=== PATIENT | female | born 1970 | race Caucasian/White ===

== ENCOUNTER 2018-02-16 11:21 | Emergency (ER) | payer BC, MEDICARE ==
[~2018-02-16] VITALS: Ht 160 cm; Wt 77.3 kg
[2018-02-16] MEDS ORDERED: PANTOPRAZOLE SO40 MG PO (11:37)
[2018-02-16] MEDS ORDERED: HYDROXYZ HCL25 MG PO (11:39)
[2018-02-16] MEDS ORDERED: RISPERIDONE2 MG PO (11:40)
[2018-02-16] MEDS ORDERED: TRAZODONE50 MG PO (11:41)
[2018-02-16] MEDS ORDERED: SERTRALINE HCL50 MG PO (11:42)
[2018-02-16] MEDS ORDERED: VOLTAREN1%GEL TOP (11:43)
[2018-02-16] MEDS ORDERED: XTAMPZA ER27 MG PO (11:43)
[2018-02-16] MEDS ORDERED: HYDROMORPHON4 MG PO (11:44)
[2018-02-16] MEDS ORDERED: CLEARLAX PO (11:45)
[2018-02-16] MEDS ORDERED: PHENERGAN25 MG/TAB PO (12:02)
[2018-02-16] MEDS ORDERED: PENICILLN VK500 MG PO (12:02)
[2018-02-16 12:15] VITALS: BP 156/89
== END 2018-02-16 12:15 | disposition home or self-care (01) | DRG 159 ==
LOC: ED 11:21
DX: K02.9 Dental caries, unspecified (principal); K04.7 Periapical abscess without sinus; K08.89 Other specified disorders of teeth and supporting structures; R50.9 Fever, unspecified; F17.210 Nicotine dependence, cigarettes, uncomplicated

== ENCOUNTER 2018-03-01 13:16 | Emergency (ER) | payer BC, MEDICARE ==
[~2018-03-01] VITALS: Ht 160 cm; Wt 75.0 kg
[~2018-03-01 13:16] MED LIST: CLEARLAX PO; HYDROMORPHON4 MG PO; HYDROXYZ HCL25 MG PO; PANTOPRAZOLE SO40 MG PO; PENICILLN VK500 MG PO; PHENERGAN25 MG/TAB PO; RISPERIDONE2 MG PO; SERTRALINE HCL50 MG PO; TRAZODONE50 MG PO; VOLTAREN1%GEL TOP; XTAMPZA ER27 MG PO
[2018-03-01] MEDS ORDERED: CLINDAMYCIN300 M1 PO (14:25)
[2018-03-01 14:42] VITALS: BP 111/69
== END 2018-03-01 14:42 | disposition home or self-care (01) | DRG 159 ==
LOC: ED 13:16
PROC: 0C960ZZ Drainage of Lower Gingiva, Open Approach (ICD-10-PCS; principal; 2018-03-01)
DX: K08.89 Other specified disorders of teeth and supporting structures (principal); I10 Essential (primary) hypertension; F17.200 Nicotine dependence, unspecified, uncomplicated

== ENCOUNTER 2018-04-25 11:35 | Emergency (ER) | payer BC, MEDICARE, MEDICAID ==
[~2018-04-25] VITALS: Ht 160 cm; Wt 80.0 kg
[2018-04-25 12:47] LABS: HEMOGLOBIN 12.3 g/dl (12.0-16.0); IMMATURE GRANULOCYTES 0.1 % (0.0-5.0); MEAN CELL VOLUME 91.4 fL CALC (80.0-100.0); MEAN CORPUSCULAR HGB 30.4 pG CALC (26.0-32.0); MEAN CORPUSCULAR HGB CONC 33.2 g/L CALC (32.0-36.0); NEUT# 4.36 thou/uL (2.00-7.15); RED BLOOD COUNT 4.05 mill/uL (4.20-5.60); RED CELL DISTRI WIDTH 13.4 % (11.5-15.5)
[2018-04-25 13:03] LABS: ANION GAP 13 (6-22 (CALC)); BUN 10 mg/dL (7-17); BUN/CREATININE RATIO 17 (12-20 (CALC)); CARBON DIOXIDE 29 mmol/l (22-30); CHLORIDE 99 mmol/l (95-108); CREATININE 0.6 mg/dL (0.5-1.0); GFR > 60 ML/MIN (>=60 (CALC)); GFR FOR AFR.AMER. > 60 ML/MIN (>=60 (CALC)); POTASSIUM 3.4 mmol/l (3.5-5.1); SODIUM 138 mmol/l (137-146)
[2018-04-25 16:03] VITALS: BP 138/76
== END 2018-04-25 16:34 | disposition home or self-care (01) | DRG 313 ==
LOC: ED 11:35
PROVIDERS: Family Medicine
DX: R07.9 Chest pain, unspecified (principal); R00.2 Palpitations; R94.31 Abnormal electrocardiogram [ECG] [EKG]; R22.41 Localized swelling, mass and lump, right lower limb; F17.200 Nicotine dependence, unspecified, uncomplicated; M25.551 Pain in right hip

== ENCOUNTER → 2018-04-25 | Outpatient (REF) | payer BC, MEDICARE, MEDICAID ==
[~2018-04-25] MED LIST changes: +CLINDAMYCIN300 M1 PO
== END | disposition home or self-care (01) | DRG 556 ==
LOC: MRI 04-22 14:00
DX: M25.551 Pain in right hip (principal)

== ENCOUNTER 2018-09-29 12:07 | Emergency (ER) | payer BC, MEDICARE, MEDICAID ==
[~2018-09-29] VITALS: Ht 160 cm; Wt 77.3 kg
[2018-09-29 12:30] VITALS: BP 144/88
== END 2018-09-29 13:01 | disposition left against medical advice (07) | DRG 951 ==
LOC: ED 12:07 → LWOBS 13:01
DX: Z91.19 Patient's noncompliance with other medical treatment and regimen (principal)

== ENCOUNTER 2018-12-03 12:03 | Emergency (ER) | payer MEDICARE, MEDICAID ==
[~2018-12-03] VITALS: Ht 160 cm; Wt 85.0 kg
[~2018-12-03 12:03] MED LIST changes: +PANTOPRAZOLE SO40 M1 PO; -PANTOPRAZOLE SO40 MG PO
[2018-12-03] MEDS ORDERED: TRAZODONE300 MG PO (13:15)
[2018-12-03] MEDS ORDERED: RISPERDAL1 MG PO (13:16)
[2018-12-03] MEDS ORDERED: SERTRALINE HCL100 MG PO (13:16)
[2018-12-03] MEDS ORDERED: HYDROXYZ HCL10 MG PO (13:17)
[2018-12-03] MEDS ORDERED: OXYCODONE30 MG PO (13:18)
[2018-12-03] MEDS ORDERED: DUEXIS1 TAB PO (13:18)
[2018-12-03] MEDS ORDERED: MORPHINE SUL30 M3 PO (13:19)
[2018-12-03] MEDS ORDERED: MELOXICAM15 MG PO (13:21)
[2018-12-03 13:25] VITALS: BP 149/79
== END 2018-12-03 13:25 | disposition home or self-care (01) ==
LOC: ED 12:03
DX: M79.602 Pain in left arm (principal); F17.200 Nicotine dependence, unspecified, uncomplicated

== ENCOUNTER 2019-02-01 21:07 | Emergency (ER) | payer MEDICARE, MEDICAID ==
[~2019-02-01] VITALS: Ht 160 cm; Wt 80.0 kg
[~2019-02-01 21:07] MED LIST changes: +DUEXIS1 TAB PO; +HYDROXYZ HCL10 MG PO; +MELOXICAM15 MG PO; +MORPHINE SUL30 M3 PO; +OXYCODONE30 MG PO; +RISPERDAL1 MG PO; +SERTRALINE HCL100 MG PO; +TRAZODONE300 MG PO
[2019-02-01 21:13] VITALS: BP 142/97
[2019-02-01] MEDS ORDERED: VOLTAREN - GENE75 MG PO (21:32)
== END 2019-02-01 21:50 | disposition home or self-care (01) ==
LOC: ED 21:07
DX: N64.4 Mastodynia (principal); F17.200 Nicotine dependence, unspecified, uncomplicated

== ENCOUNTER 2019-03-04 | Observation (INO) | payer MEDICARE, MEDICAID ==
[2019-03-04] VITALS (8 sets, daily range): BP systolic 101–166; BP diastolic 67–90
[~2019-03-04] MED LIST changes: +VOLTAREN - GENE75 MG PO
[2019-03-04] MEDS ORDERED: ZOLOFT50 MG PO (01:52)
[2019-03-04 02:05] LABS: HEMATOCRIT 39.8 % (37.0-47.0); HEMOGLOBIN 13.7 g/dl (12.0-16.0); IMMATURE GRANULOCYTES 0.2 % (0.0-5.0); MEAN CELL VOLUME 88.4 fL CALC (80.0-100.0); MEAN CORPUSCULAR HGB 30.4 pG CALC (26.0-32.0); MEAN CORPUSCULAR HGB CONC 34.4 g/L CALC (32.0-36.0); NEUT# 8.65 thou/uL (2.00-7.15); RED BLOOD COUNT 4.5 mill/uL (4.20-5.60); RED CELL DISTRI WIDTH 12.8 % (11.5-15.5)
[2019-03-04 02:06] LABS: URINE BILIRUBIN - DIPSTICK NEGATIVE (NEGATIVE); URINE BLOOD DIPSTICK NEGATIVE (NEGATIVE); URINE COLOR YELLOW; URINE GLUCOSE - DIPSTICK NEGATIVE (NEGATIVE); URINE KETONE NEGATIVE (NEGATIVE); URINE LEUK ESTERASE NEGATIVE (NEGATIVE); URINE NITRITE - DIPSTICK NEGATIVE (Negative); URINE PH 6.5 (4.5-8.0); URINE PROTEIN - DIPSTICK NEGATIVE (NEG-TRACE); URINE SPECIFIC GRAVITY <=1.005; URINE UROBILINOGEN - DIPSTICK 0.2 E.U./dL (0.2)
[2019-03-04 02:22] LABS: ALBUMIN 4.4 g/dL (3.2-5.0); ALKALINE PHOSPHATASE 81 u/l (38-126); BILIRUBIN, TOTAL 0.5 mg/dL (0.0-1.4); BUN 10 mg/dL (7-17); BUN/CREATININE RATIO 14 (12-20 (CALC)); CARBON DIOXIDE 30 mmol/l (22-30); CHLORIDE 99 mmol/l (95-108); CREATININE 0.7 mg/dL (0.5-1.0); GFR > 60 ML/MIN (>=60 (CALC)); GFR FOR AFR.AMER. > 60 ML/MIN (>=60 (CALC)); SGOT/AST 18 u/l (14-36); SODIUM 138 mmol/l (137-146); TOTAL PROTEIN 7.6 g/dL (6.3-8.2)
[2019-03-04 02:33] LABS: MYOGLOBIN 45 ng/mL (0 - 62)
[2019-03-04 02:37] LABS: ANION GAP 12 (6-22 (CALC)); POTASSIUM 2.6 mmol/l (3.5-5.1)
[2019-03-04 02:43] LABS: BARBITURATES NEGATIVE (NEGATIVE); COCAINE NEGATIVE (NEGATIVE); METHADONE NEGATIVE (NEGATIVE); OXCYCODONE POSITIVE (NEGATIVE); TETRAHYDROCANNABIONOL NEGATIVE (NEGATIVE); TRICYLIC ANTIDEPRESSANTS NEGATIVE (NEGATIVE)
== END 2019-03-04 21:06 ==
PROVIDERS: Emergency Medicine; ADMIT Internal Medicine
DX: G93.40 Encephalopathy, unspecified (principal); F99 Mental disorder, not otherwise specified; R44.0 Auditory hallucinations; E87.6 Hypokalemia; R00.2 Palpitations; G89.4 Chronic pain syndrome; F17.200 Nicotine dependence, unspecified, uncomplicated

== ENCOUNTER 2019-12-08 20:46 | Emergency (ER) | payer MEDICARE, MEDICAID ==
[~2019-12-08] VITALS: Ht 160 cm; Wt 100.0 kg
[~2019-12-08 20:46] MED LIST changes: +ZOLOFT50 MG PO
[2019-12-08 21:13] LABS: HEMATOCRIT 38.9 % (37.0-47.0); HEMOGLOBIN 12.5 g/dl (12.0-16.0); IMMATURE GRANULOCYTES 0.4 % (0.0-5.0); MEAN CELL VOLUME 92.4 fL CALC (80.0-100.0); MEAN CORPUSCULAR HGB 29.7 pG CALC (26.0-32.0); MEAN CORPUSCULAR HGB CONC 32.1 g/dL CAL (32.0-36.0); RED BLOOD COUNT 4.21 mill/uL (4.20-5.60); RED CELL DISTRI WIDTH 13.4 % (11.5-15.5)
[2019-12-08 21:34] LABS: ALKALINE PHOSPHATASE 76 u/l (38-126); ANION GAP 12 (6-22 (CALC)); BILIRUBIN, TOTAL 0.3 mg/dL (0.0-1.4); BUN 11 mg/dL (7-17); BUN/CREATININE RATIO 15 (12-20 (CALC)); CARBON DIOXIDE 25 mmol/l (22-30); CHLORIDE 108 mmol/l (95-108); CREATININE 0.7 mg/dL (0.5-1.0); GFR > 60 ML/MIN (>=60 (CALC)); GFR FOR AFR.AMER. > 60 ML/MIN (>=60 (CALC)); POTASSIUM 3.3 mmol/l (3.5-5.1); SGOT/AST 31 u/l (14-36); SODIUM 142 mmol/l (137-146); TOTAL PROTEIN 6.8 g/dL (6.3-8.2)
[2019-12-08 21:46] LABS: MYOGLOBIN 19 ng/mL (0 - 62)
[2019-12-08 23:54] LABS: URINE BILIRUBIN - DIPSTICK NEGATIVE (NEGATIVE); URINE BLOOD DIPSTICK NEGATIVE (NEGATIVE); URINE COLOR YELLOW; URINE GLUCOSE - DIPSTICK NEGATIVE (NEGATIVE); URINE KETONE NEGATIVE (NEGATIVE); URINE LEUK ESTERASE NEGATIVE (NEGATIVE); URINE NITRITE - DIPSTICK NEGATIVE (Negative); URINE PH 6.5 (4.5-8.0); URINE PROTEIN - DIPSTICK TRACE mg/dL (NEG-TRACE); URINE SPECIFIC GRAVITY >=1.030; URINE UROBILINOGEN - DIPSTICK 0.2 E.U./dL (0.2)
[2019-12-09 00:15] LABS: ALBUMIN 3.8 g/dL (3.2-5.0); ALKALINE PHOSPHATASE 66 u/l (38-126); BILIRUBIN, TOTAL 0.3 mg/dL (0.0-1.4); BUN 12 mg/dL (7-17); BUN/CREATININE RATIO 19 (12-20 (CALC)); CARBON DIOXIDE 27 mmol/l (22-30); CHLORIDE 110 mmol/l (95-108); CREATININE 0.6 mg/dL (0.5-1.0); GFR > 60 ML/MIN (>=60 (CALC)); GFR FOR AFR.AMER. > 60 ML/MIN (>=60 (CALC)); SGOT/AST 24 u/l (14-36); SODIUM 142 mmol/l (137-146); TOTAL PROTEIN 6.2 g/dL (6.3-8.2)
[2019-12-09 00:17] LABS: ANION GAP 9 (6-22 (CALC)); POTASSIUM 4.4 mmol/l (3.5-5.1)
[2019-12-09 00:59] VITALS: BP 110/60
== END 2019-12-09 00:59 | disposition home or self-care (01) ==
LOC: ED 20:46
PROVIDERS: Emergency Medicine
DX: T40.2X1A Poisoning by other opioids, accidental (unintentional), initial encounter (principal); R40.4 Transient alteration of awareness; M54.2 Cervicalgia; G89.29 Other chronic pain; M54.9 Dorsalgia, unspecified; F17.210 Nicotine dependence, cigarettes, uncomplicated; Z20.828 Contact with and (suspected) exposure to other viral communicable diseases